=== PATIENT | male | born 1940 | race Caucasian/White ===

== ENCOUNTER 2020-02-19 16:51 | Inpatient (IN) | payer MEDICARE, MEDICAID ==
[~2020-02-19] VITALS: Ht 180.3 cm; Wt 80.8 kg
[2020-02-19] MEDS ORDERED: SODIUM CHLORIDE 0.9% 1,000 ML IV ONE (17:35)
[2020-02-19] MEDS ORDERED: LEVETIRACETAM 500MG PREMIX 100 ML IV ONE (17:45)
[2020-02-19] MEDS ORDERED: LORAZEPAM 2MG/ML CPJ IV ONE ×2 (17:45→22:30)
[2020-02-19 18:29] LABS: BASOPHILS % 0.5 % (0.0-2.0); EOSINOPHILS % 0.3 % (0.0-5.0); HEMATOCRIT. 42.4 % (42.0-52.0); HEMOGLOBIN. 14.4 g/dL (14.0-18.0); LYMPHOCYTES % 23.3 % (20.0-50.0); MEAN CORPUSCULAR HEMOGLOBIN 32.3 pg (28.0-32.0); MEAN CORPUSCULAR VOLUME 95.3 fL (80.0-94.0); MEAN PLATELET VOLUME 8.2 fl (7.4-10.4); MONOCYTES % 3.1 % (2.0-8.0); NEUTROPHILS % 72.8 % (40.0-76.0); PLATELET 205 x1000/uL (130-400); RED BLOOD CELL COUNT 4.45 mill/uL (4.7-6.1); RED CELL DISTRIBUTION WIDTH 14.8 % (11.6-14.6)
[2020-02-19 18:35] LABS: CHLORIDE 106 mEq/L (98-107)
[2020-02-19 18:40] LABS: ETHANOL BLOOD < 10 mg/dL
[2020-02-19 18:45] LABS: CARBAMAZEPINE < 0.5 ug/mL (4-12); PHENOBARBITAL < 2.1 ug/mL (15.0-40.0); VALPROIC ACID < 3.0 ug/mL (50-100)
[2020-02-19] MEDS ORDERED: SODIUM CHLORIDE 0.9% 1000ML BAG (SEPSIS BOLUS) IV NR (19:30)
[2020-02-19] MEDS ORDERED: CEFTRIAXONE 1 G PREMIX 50 ML IV SCH ×2 (19:30→22:30)
[2020-02-19 20:15] LABS: CREATINE KINASE 145 IU/L (39-308)
[2020-02-19] MEDS ORDERED: SODIUM CHLORIDE 0.9% 1000ML BAG (SEPSIS BOLUS) IV ONE (21:00)
[2020-02-19] MEDS ORDERED: DEXTROSE 50% WATER 50ML SYRINGE IV PRN (22:15)
[2020-02-19] MEDS ORDERED: CLONIDINE 0.1MG TABLET PO PRN (22:15)
[2020-02-19] MEDS ORDERED: HYDROCODONE/ACETAMINOPHEN 10/325MG TABLET PO PRN (22:15)
[2020-02-19] MEDS ORDERED: MORPHINE SULFATE 2 MG/ML CPJ (NOT FOR IM USE) IV PRN (22:15)
[2020-02-19] MEDS ORDERED: GUAIFENESIN 200MG/10ML SUGAR FREE UDC PO PRN (22:15)
[2020-02-19] MEDS ORDERED: DOCUSATE SODIUM 100MG CAPSULE PO PRN (22:15)
[2020-02-19] MEDS ORDERED: ACETAMINOPHEN 325MG TABLET PO PRN (22:15)
[2020-02-19] MEDS ORDERED: HYDRALAZINE 20MG/ML VIAL IV PRN (22:15)
[2020-02-19] MEDS ORDERED: MAGNESIUM/ALUMINUM HYDROXIDE/SIMETHICONE 30ML UDC PO PRN (22:15)
[2020-02-19] MEDS ORDERED: IPRATROPIUM/ALBUTEROL 0.5-3(2.5)MG/3ML NEB NEB PRN (22:15)
[2020-02-19] MEDS ORDERED: ONDANSETRON HCL 4MG/2ML INJ IV PRN (22:15)
[2020-02-19] MEDS ORDERED: DIPHENHYDRAMINE 50MG/ML VIAL IV PRN (22:15)
[2020-02-20 01:00] VITALS: BP 154/76
[2020-02-20] MEDS: LORAZEPAM 2MG/ML CPJ IV PRN ×2 (01:24→22:15)
[2020-02-20] MEDS ORDERED: POTASSIUM CHLORIDE INJ 40 MEQ in DEXT 5% WATER 500 ML IV NR (02:00)
[2020-02-20 04:00] VITALS: BP 146/88
[2020-02-20] MEDS: BLOOD SUGAR DIAGNOSTIC STRIP TEST SCH ×4 (06:05→20:47)
[2020-02-20] MEDS: SODIUM CHLORIDE 0.9% INJ 3ML FLUSH IVF SCH ×3 (06:23→21:25)
[2020-02-20] MEDS: INSULIN LISPRO 100 UNITS/ML SUBCUT SCH ×4 (06:23→20:51)
[2020-02-20 06:48] LABS: BASOPHILS % 0.9 % (0.0-2.0); EOSINOPHILS % 0.1 % (0.0-5.0); HEMATOCRIT. 32.7 % (42.0-52.0); HEMOGLOBIN. 11.5 g/dL (14.0-18.0); LYMPHOCYTES % 19.9 % (20.0-50.0); MEAN CORPUSCULAR HEMOGLOBIN 32.5 pg (28.0-32.0); MEAN CORPUSCULAR VOLUME 92.5 fL (80.0-94.0); MEAN PLATELET VOLUME 7.7 fl (7.4-10.4); MONOCYTES % 6.6 % (2.0-8.0); NEUTROPHILS % 72.5 % (40.0-76.0); PLATELET 157 x1000/uL (130-400); RED BLOOD CELL COUNT 3.54 mill/uL (4.7-6.1)
[2020-02-20 07:05] LABS: CHLORIDE 112 mEq/L (98-107)
[2020-02-20 07:16] LABS: LDL CHOLESTEROL 115 mg/dL (5-100)
[2020-02-20 07:17] LABS: CREATINE KINASE 462 IU/L (39-308)
[2020-02-20 07:18] LABS: CREATINE KINASE MB FRACTION 5.8 ng/mL (0.5-3.6)
[2020-02-20 07:19] LABS: HDL CHOLESTEROL 34 mg/dL (40-59); T4 FREE 0.77 ng/dL (0.76-1.46)
[2020-02-20 08:00] VITALS: BP 130/63
[2020-02-20] MEDS ORDERED: LEVETIRACETAM 500 MG in SODIUM CHLORIDE 0.9% 100 ML IV SCH (09:00)
[2020-02-20] MEDS: LEVETIRACETAM 500MG PREMIX 100 ML IV SCH ×2 (09:52→20:31)
[2020-02-20] MEDS: SODIUM CHLORIDE 0.45% 1,000 ML IV SCH (09:54)
[2020-02-20] MEDS: ENOXAPARIN 30MG/0.3ML SYR SUBCUT SCH ×2 (10:09→20:32)
[2020-02-20 12:00] VITALS: BP 112/59
[2020-02-20 15:36] LABS: CREATINE KINASE 449 IU/L (39-308)
[2020-02-20 15:38] LABS: CREATINE KINASE MB FRACTION 6.1 ng/mL (0.5-3.6)
[2020-02-20 16:00] VITALS: BP 118/63
[2020-02-20 20:00] VITALS: BP 131/58
[2020-02-20] MEDS: CEFTRIAXONE 1 G PREMIX 50 ML IV SCH (20:32)
[2020-02-21] VITALS: BP 120/73
[2020-02-21 04:00] VITALS: BP 137/60
[2020-02-21] MEDS: SODIUM CHLORIDE 0.9% INJ 3ML FLUSH IVF SCH ×3 (05:04→21:40)
[2020-02-21] MEDS: BLOOD SUGAR DIAGNOSTIC STRIP TEST SCH ×4 (06:09→21:40)
[2020-02-21 06:39] LABS: BASOPHILS % 0.9 % (0.0-2.0); EOSINOPHILS % 2.2 % (0.0-5.0); HEMATOCRIT. 30.5 % (42.0-52.0); HEMOGLOBIN. 10.9 g/dL (14.0-18.0); LYMPHOCYTES % 35.5 % (20.0-50.0); MEAN CORPUSCULAR HEMOGLOBIN 33.2 pg (28.0-32.0); MEAN CORPUSCULAR VOLUME 92.6 fL (80.0-94.0); MEAN PLATELET VOLUME 7.7 fl (7.4-10.4); MONOCYTES % 6.5 % (2.0-8.0); NEUTROPHILS % 54.9 % (40.0-76.0); PLATELET 148 x1000/uL (130-400); RED CELL DISTRIBUTION WIDTH 15.1 % (11.6-14.6)
[2020-02-21 07:17] LABS: CHLORIDE 109 mEq/L (98-107)
[2020-02-21 08:00] VITALS: BP 141/80
[2020-02-21] MEDS: SODIUM CHLORIDE 0.45% 1,000 ML IV SCH (09:09)
[2020-02-21] MEDS: ENOXAPARIN 30MG/0.3ML SYR SUBCUT SCH ×2 (09:09→21:17)
[2020-02-21] MEDS: INSULIN LISPRO 100 UNITS/ML SUBCUT SCH ×4 (09:13→21:40)
[2020-02-21] MEDS: LEVETIRACETAM 500MG PREMIX 100 ML IV SCH (09:28)
[2020-02-21 12:00] VITALS: BP 140/70
[2020-02-21 16:00] VITALS: BP 138/65
[2020-02-21 20:00] VITALS: BP 169/82
[2020-02-21] MEDS: LEVETIRACETAM 500MG TABLET PO SCH (21:17)
[2020-02-21] MEDS: LORAZEPAM 2MG/ML CPJ IV PRN (21:17)
[2020-02-21] MEDS: CEFTRIAXONE 1 G PREMIX 50 ML IV SCH (21:18)
[2020-02-22] VITALS: BP 139/70
[2020-02-22 04:00] VITALS: BP 140/78
[2020-02-22] MEDS: SODIUM CHLORIDE 0.9% INJ 3ML FLUSH IVF SCH ×2 (06:00→14:00)
[2020-02-22 06:35] LABS: BASOPHILS % 0.9 % (0.0-2.0); HEMATOCRIT. 30.9 % (42.0-52.0); LYMPHOCYTES % 37.1 % (20.0-50.0); MEAN CORPUSCULAR HEMOGLOBIN 32.9 pg (28.0-32.0); MEAN CORPUSCULAR VOLUME 92.3 fL (80.0-94.0); MEAN PLATELET VOLUME 7.6 fl (7.4-10.4); PLATELET 151 x1000/uL (130-400); RED BLOOD CELL COUNT 3.35 mill/uL (4.7-6.1); RED CELL DISTRIBUTION WIDTH 14.8 % (11.6-14.6)
[2020-02-22] MEDS: INSULIN LISPRO 100 UNITS/ML SUBCUT SCH ×4 (06:36→20:50)
[2020-02-22] MEDS: BLOOD SUGAR DIAGNOSTIC STRIP TEST SCH ×4 (06:36→20:49)
[2020-02-22 07:31] LABS: CHLORIDE 108 mEq/L (98-107)
[2020-02-22 08:00] VITALS: BP 142/66
[2020-02-22 08:17] LABS: CREATINE KINASE 1382 IU/L (39-308)
[2020-02-22] MEDS: ENOXAPARIN 30MG/0.3ML SYR SUBCUT SCH ×2 (09:41→20:49)
[2020-02-22] MEDS: LEVETIRACETAM 500MG TABLET PO SCH ×2 (09:41→20:18)
[2020-02-22] MEDS: SODIUM CHLORIDE 0.45% 1,000 ML IV SCH (09:42)
[2020-02-22 12:00] VITALS: BP 141/68
[2020-02-22 20:00] VITALS: BP 154/82
[2020-02-23] VITALS: BP 137/63
[2020-02-23] MEDS: SODIUM CHLORIDE 0.45% 1,000 ML IV SCH ×2 (02:25→11:40)
[2020-02-23 04:00] VITALS: BP 149/69
[2020-02-23] MEDS: SODIUM CHLORIDE 0.9% INJ 3ML FLUSH IVF SCH ×3 (05:05→14:00)
[2020-02-23] MEDS: BLOOD SUGAR DIAGNOSTIC STRIP TEST SCH ×2 (06:43→12:31)
[2020-02-23] MEDS: INSULIN LISPRO 100 UNITS/ML SUBCUT SCH ×2 (06:50→12:46)
[2020-02-23 07:57] LABS: CHLORIDE 106 mEq/L (98-107)
[2020-02-23 08:00] VITALS: BP 163/67
[2020-02-23 08:06] LABS: CREATINE KINASE MB FRACTION 1.5 ng/mL (0.5-3.6)
[2020-02-23] MEDS ORDERED: ENOXAPARIN 40MG/0.4ML SYR SUBCUT SCH (09:00)
[2020-02-23] MEDS: LEVETIRACETAM 500MG TABLET PO SCH (09:30)
[2020-02-23 10:36] LABS: CREATINE KINASE 1247 IU/L (39-308)
[2020-02-23 12:00] VITALS: BP 135/86
[2020-02-23 15:27] VITALS: BP 125/66
[2020-02-23 16:00] VITALS: BP 161/69
== END 2020-02-23 16:57 | disposition home health service (06) | DRG 101 ==
LOC: ER 16:51 → EDBEDREQ 19:40 → CANRESERV 20:17 → ENRESERV 20:17 → 5WST 20:50 → EDBEDREQTM 20:54 → EDBEDREQ 20:54 → ENRESERV 22:46 → 5WST 02-21 21:04
PROVIDERS: ADMIT Internal Medicine; ATTEND Internal Medicine
PROC: 4A10X4Z Monitoring of Central Nervous Electrical Activity, External Approach (ICD-10-PCS; principal; 2020-02-22)
DX: R56.9 Unspecified convulsions (principal); E87.2 Acidosis; R65.10 Systemic inflammatory response syndrome (SIRS) of non-infectious origin without acute organ dysfunction; M62.82 Rhabdomyolysis; F03.90 Unspecified dementia, unspecified severity, without behavioral disturbance, psychotic disturbance, mood disturbance, and anxiety; E11.9 Type 2 diabetes mellitus without complications; E87.6 Hypokalemia; I10 Essential (primary) hypertension; E78.5 Hyperlipidemia, unspecified; Z86.73 Personal history of transient ischemic attack (TIA), and cerebral infarction without residual deficits
CPT/HCPCS: 36415; 71045; 80048; 80053; 80061; 80156; 80165; 80184; 80185; 80320; 82550; 82553; 82962; 83605; 83880; 84439; 84443; 84484; 85025; 93005; 96365; 97116; 97162; 97530; 99285; J0696; J1200; J1650; J1815; J1953; J2060; J3480; J7030; J7060; G0480

== ENCOUNTER 2021-03-24 13:26 | Emergency (ER) | payer OTHER ==
[~2021-03-24] VITALS: Ht 167.6 cm; Wt 80.0 kg
[2021-03-24] MEDS ORDERED: LEVETIRACETAM 500MG PREMIX 100 ML IV ONE (14:30)
[2021-03-24] MEDS ORDERED: LORAZEPAM 2MG/ML CPJ IV ONE (14:30)
[2021-03-24 17:00] VITALS: BP 154/77
== END 2021-03-24 18:26 | disposition home or self-care (01) ==
LOC: ER 13:30
DX: R56.9 Unspecified convulsions (principal); I10 Essential (primary) hypertension; E11.9 Type 2 diabetes mellitus without complications
CPT/HCPCS: 93005; 96374; 96375; 99285; J1953; J2060

== ENCOUNTER 2021-12-10 16:47 | Emergency (ER) | payer OTHER ==
[~2021-12-10] VITALS: Ht 177.8 cm; Wt 81.0 kg
[2021-12-10] MEDS ORDERED: LEVETIRACETAM 1000MG PREMIX 100 ML IV ONE (17:15)
[2021-12-10 17:57] LABS: BASOPHILS % 0.7 % (0.0-2.0); EOSINOPHILS % 1.2 % (0.0-5.0); HEMATOCRIT. 41.9 % (42.0-52.0); HEMOGLOBIN. 14.5 g/dL (14.0-18.0); LYMPHOCYTES % 22.2 % (20.0-50.0); MEAN CORPUSCULAR VOLUME 92.4 fL (80.0-94.0); MEAN PLATELET VOLUME 7.1 fl (7.4-10.4); NEUTROPHILS % 71.9 % (40.0-76.0); PLATELET 200 x1000/uL (130-400); RED BLOOD CELL COUNT 4.54 mill/uL (4.7-6.1); RED CELL DISTRIBUTION WIDTH 14.4 % (11.6-14.6)
[2021-12-10 18:05] LABS: CHLORIDE 101 mEq/L (98-107)
[2021-12-10 18:09] LABS: ETHANOL BLOOD < 10 mg/dL
[2021-12-10] MEDS ORDERED: IOHEXOL-350 100 ML BOTTLE ONE (18:48)
[2021-12-10 23:20] VITALS: BP 123/61
== END 2021-12-10 23:33 | disposition home or self-care (01) ==
LOC: ER 16:47 → CANBEDREQ 12-11 05:38
DX: R56.9 Unspecified convulsions (principal); F03.90 Unspecified dementia, unspecified severity, without behavioral disturbance, psychotic disturbance, mood disturbance, and anxiety; E11.9 Type 2 diabetes mellitus without complications; I10 Essential (primary) hypertension; Z20.822 Contact with and (suspected) exposure to COVID-19
CPT/HCPCS: 36415; 70450; 70496; 70498; 71045; 80053; 80320; 82140; 82962; 83690; 84484; 85025; 87426; 93005; 96365; 99285; J1953; Q9967; G0480

== ENCOUNTER 2022-12-29 19:36 | Inpatient (IN) | payer MEDICARE, MEDICAID ==
[~2022-12-29] VITALS: Ht 172.7 cm; Wt 78.1 kg
[2022-12-29] MEDS ORDERED: LEVETIRACETAM 500MG PREMIX 100 ML IV ONE (20:00)
[2022-12-29] MEDS ORDERED: LEVETIRACETAM 500MG PREMIX 100 ML IV NR (22:30)
[2022-12-29 23:19] LABS: CHLORIDE 104 mEq/L (98-107)
[2022-12-29 23:28] LABS: ETHANOL BLOOD < 10 mg/dL
[2022-12-29 23:29] LABS: BASOPHILS % 0.5 % (0.0-2.0); EOSINOPHILS % 0.7 % (0.0-5.0); HEMATOCRIT. 37.2 % (42.0-52.0); HEMOGLOBIN. 13.2 g/dL (14.0-18.0); LYMPHOCYTES % 25.5 % (20.0-50.0); MEAN CORPUSCULAR HEMOGLOBIN 32.6 pg (28.0-32.0); MEAN CORPUSCULAR VOLUME 91.8 fL (80.0-94.0); MEAN PLATELET VOLUME 7.7 fl (7.4-10.4); MONOCYTES % 5.3 % (2.0-8.0); PLATELET 211 x1000/uL (130-400); RED BLOOD CELL COUNT 4.06 mill/uL (4.7-6.1); RED CELL DISTRIBUTION WIDTH 13.6 % (11.6-14.6)
[2022-12-30 10:02] VITALS: BP 110/59
[2022-12-30 10:07] VITALS: BP 110/59
[2022-12-30] MEDS ORDERED: MAGNESIUM/ALUMINUM HYDROXIDE/SIMETHICONE 30ML UDC PO PRN (10:15)
[2022-12-30] MEDS ORDERED: ONDANSETRON HCL 4MG/2ML INJ IV PRN (10:15)
[2022-12-30] MEDS ORDERED: DOCUSATE SODIUM 100MG CAPSULE PO PRN (10:15)
[2022-12-30] MEDS ORDERED: ACETAMINOPHEN 325MG TABLET PO PRN ×2 (10:15)
[2022-12-30] MEDS ORDERED: DEXTROSE 50% WATER 50ML SYRINGE IV PRN (10:15)
[2022-12-30] MEDS ORDERED: CLONIDINE 0.1MG TABLET PO PRN (10:15)
[2022-12-30] MEDS ORDERED: LEVETIRACETAM 500 MG in SODIUM CHLORIDE 0.9% 100 ML IV SCH (10:30)
[2022-12-30] MEDS ORDERED: LEVETIRACETAM 500MG PREMIX 100 ML IV SCH (11:00)
[2022-12-30] MEDS: BLOOD SUGAR DIAGNOSTIC STRIP TEST SCH ×3 (11:50→21:09)
[2022-12-30 12:00] VITALS: BP 130/75
[2022-12-30 12:38] LABS: BASOPHILS % 0.7 % (0.0-2.0); EOSINOPHILS % 1.6 % (0.0-5.0); HEMATOCRIT. 37.4 % (42.0-52.0); LYMPHOCYTES % 32.9 % (20.0-50.0); MEAN CORPUSCULAR HEMOGLOBIN 32.2 pg (28.0-32.0); MEAN CORPUSCULAR VOLUME 92.5 fL (80.0-94.0); MEAN PLATELET VOLUME 7.4 fl (7.4-10.4); MONOCYTES % 7.8 % (2.0-8.0); PLATELET 187 x1000/uL (130-400); RED BLOOD CELL COUNT 4.04 mill/uL (4.7-6.1)
[2022-12-30] MEDS: LEVETIRACETAM 500MG PREMIX 100 ML IV SCH ×2 (12:47→20:13)
[2022-12-30] MEDS: ENOXAPARIN 40MG/0.4ML SYR SUBCUT SCH (12:50)
[2022-12-30] MEDS: INSULIN LISPRO 100 UNITS/ML SUBCUT SCH ×3 (12:50→21:18)
[2022-12-30] MEDS: SODIUM CHLORIDE 0.9% INJ 3ML FLUSH IVF SCH ×2 (12:51→21:09)
[2022-12-30 12:56] LABS: CHLORIDE 106 mEq/L (98-107)
[2022-12-30 13:31] LABS: HEPATITIS B SURFACE ANTIGEN NEGATIVE
[2022-12-30 16:00] VITALS: BP 119/60
[2022-12-30 20:00] VITALS: BP 122/74
[2022-12-31] VITALS: BP 114/66
[2022-12-31 04:00] VITALS: BP 104/54
[2022-12-31] MEDS: SODIUM CHLORIDE 0.9% INJ 3ML FLUSH IVF SCH ×2 (06:07→12:50)
[2022-12-31] MEDS: BLOOD SUGAR DIAGNOSTIC STRIP TEST SCH ×2 (06:44→11:50)
[2022-12-31 06:50] LABS: BASOPHILS % 0.9 % (0.0-2.0); EOSINOPHILS % 2.6 % (0.0-5.0); HEMATOCRIT. 36.2 % (42.0-52.0); HEMOGLOBIN. 12.8 g/dL (14.0-18.0); LYMPHOCYTES % 45.8 % (20.0-50.0); MEAN CORPUSCULAR HEMOGLOBIN 32.6 pg (28.0-32.0); MEAN CORPUSCULAR VOLUME 92.3 fL (80.0-94.0); MEAN PLATELET VOLUME 7.7 fl (7.4-10.4); NEUTROPHILS % 43.7 % (40.0-76.0); PLATELET 177 x1000/uL (130-400); RED BLOOD CELL COUNT 3.93 mill/uL (4.7-6.1); RED CELL DISTRIBUTION WIDTH 13.8 % (11.6-14.6)
[2022-12-31 07:49] LABS: CHLORIDE 107 mEq/L (98-107)
[2022-12-31 08:05] VITALS: BP 110/62
[2022-12-31] MEDS: LEVETIRACETAM 500MG PREMIX 100 ML IV SCH (08:59)
[2022-12-31] MEDS: INSULIN LISPRO 100 UNITS/ML SUBCUT SCH ×2 (09:05→12:51)
[2022-12-31 12:00] VITALS: BP 138/82
[2022-12-31] MEDS: ENOXAPARIN 40MG/0.4ML SYR SUBCUT SCH (12:49)
[2022-12-31] MEDS ORDERED: KEPP500 MT (14:12)
[2022-12-31 15:06] VITALS: BP 138/82
== END 2022-12-31 18:36 | disposition home or self-care (01) | DRG 101 ==
LOC: ER 19:55 → 3WST 23:36
PROVIDERS: ADMIT Internal Medicine; ATTEND Internal Medicine
PROC: 4A00X4Z Measurement of Central Nervous Electrical Activity, External Approach (ICD-10-PCS; principal; 2022-12-31)
DX: G40.409 Other generalized epilepsy and epileptic syndromes, not intractable, without status epilepticus (principal); E87.1 Hypo-osmolality and hyponatremia; D72.829 Elevated white blood cell count, unspecified; E11.65 Type 2 diabetes mellitus with hyperglycemia; I11.0 Hypertensive heart disease with heart failure; I50.9 Heart failure, unspecified; G30.9 Alzheimer's disease, unspecified; F02.80 Dementia in other diseases classified elsewhere, unspecified severity, without behavioral disturbance, psychotic disturbance, mood disturbance, and anxiety
CPT/HCPCS: 36415; 71045; 80048; 80053; 80320; 82542; 82962; 83036; 84484; 85025; 86803; 87340; 93005; 99285; J1650; J1815; J1953; J7050; G0480